=== PATIENT | female | born 1955 | race Caucasian/White ===

== ENCOUNTER 2016-12-16 00:43 | Emergency (ER) | payer OTHER, SELFPAY ==
[~2016-12-16] VITALS: Ht 149.9 cm; Wt 54.5 kg
[2016-12-16] MEDS ORDERED: METO25 PO (01:15)
[2016-12-16] MEDS ORDERED: DOXY100C PO (01:15)
[2016-12-16] MEDS ORDERED: LISI-662 PO (01:15)
[2016-12-16] MEDS ORDERED: TRAM50TA4 PO (01:15)
[2016-12-16] MEDS ORDERED: PERCT PO (01:15)
[2016-12-16] MEDS ORDERED: ALPR0.5T8 PO (01:15)
[2016-12-16] MEDS ORDERED: ENOX40DI9 SQ (01:15)
[2016-12-16 02:05] LABS: BASOPHILS % (AUTO) 0.4 % (0.0-2.0); EOSINOPHILS % (AUTO) 1.3 % (1.0-6.0); HEMATOCRIT 38.2 % (36-46); HEMOGLOBIN 13.3 g/dL (12.0-16.0); LYMPHOCYTES # (AUTO) 1.5 K/uL (1.0-4.8); LYMPHOCYTES % (AUTO) 19.2 % (22.0-44.0); MEAN CORPUSCULAR HGB CONC 34.9 G/dL (31.0-37.0); MEAN CORPUSCULAR VOLUME 89 fL (80-100); MONOCYTES # (AUTO) 0.6 K/uL (0.1-1.0); MONOCYTES % (AUTO) 8.2 % (2.0-9.0); NEUTROPHILS # (AUTO) 5.4 K/uL (1.8-7.7); NEUTROPHILS % (AUTO) 70.9 % (40.0-70.0); PLATELET COUNT (AUTO) 313 K/uL (150-450); RED BLOOD CELL COUNT(AUTO) 4.29 MIL/uL (4.00-5.20); RED CELL DISTRIBUTION WIDTH 12.9 % (11.5-14.5); WHITE BLOOD COUNT (AUTO) 7.6 K/uL (4.5-11.0)
[2016-12-16 02:13] LABS: CREATININE 0.98 mg/dL (0.60-1.30); POTASSIUM 3.6 mmol/L (3.5-5.1)
[2016-12-16 02:20] LABS: ALBUMIN 3.6 g/dL (3.4-5.0); BILIRUBIN,TOTAL 0.3 mg/dL (0.1-1.0); TOTAL PROTEIN, SERUM 7.5 g/dL (6.4-8.2)
[2016-12-16] MEDS ORDERED: LORazepam 1 MG TABLET PO ONE (02:30)
[2016-12-16] MEDS ORDERED: KETOROLAC TROMETHAMINE 30 MG/ML VIAL IM ONE (02:45)
[2016-12-16 02:54] VITALS: BP 165/87
== END 2016-12-16 03:00 | disposition home or self-care (01) ==
LOC: EMS 00:45
DX: F41.9 Anxiety disorder, unspecified (principal); I10 Essential (primary) hypertension
CPT/HCPCS: 36415; 71010; 80053; 84484; 85025; 93005; 96372; 99285; J1885